=== PATIENT | male | born 1975 | race Caucasian/White ===

== ENCOUNTER 2025-01-20 22:24 | Emergency (ER) | payer BC, SELFPAY ==
[2025-01-20 22:28] VITALS: BP 130/80
[2025-01-20 22:53] LABS: Urine Albumin 2+ (Neg - Trace); Urine Bilirubin Negative (Negative); Urine Character Slightly Cloudy (Clear); Urine Color Yellow; Urine Glucose Negative (Negative); Urine Ketone Negative (Negative); Urine Leukocyte 3+ (Negative); Urine Nitrite Negative (Negative); Urine Occult Blood 4+ (Negative); Urine Urobilinogen Negative (Neg - 1+)
[2025-01-20 22:55] LABS: % Basophils 0.7 % (0-2); % Eosinophils 1.9 % (0-6); % Immature Granulocytes 0.3 % (0-0.5); % Lymphocytes 16.5 % (20.5-51.1); % Monocytes 8.6 % (1.7-9.3); Absolute Basophils 0.1 10^3/uL (0-0.2); Absolute Eosinophils 0.2 10^3/uL (0-0.7); Absolute Lymphocytes 1.9 10^3/uL (1.2-3.4); Absolute Neutrophils 8.3 10^3/uL (1.4-6.5); Hematocrit 39.6 % (39.0-52.0); Hemoglobin 13.9 g/dL (13.0-18.0); Mean Corp Hgb Conc. 35.1 g/dL (33.0-37.0); Mean Corpuscular Hgb 31.7 pg (27.0-31.0); Mean Corpuscular Volume 90.2 fL (80.0-94.0); Nucleated Red Blood Cells % 0 % (-); Platelet Count 284 10^3/uL (130-400); Red Blood Cell Count 4.39 10^6/uL (4.70-6.10); Red Cell Dist. Width 12.6 % (11.5-14.5); White Blood Cell Count 11.5 10^3/uL (4.8-10.8)
[2025-01-20 23:00] LABS: Urine Squamous Cell 0-2 /LPF (Few)
[2025-01-20 23:01] LABS: Urine Bacteria Moderate (Negative); Urine Red Blood Cell 50-60 /HPF (0-2); Urine White Cell 21-25 /HPF (0-5)
[2025-01-20 23:06] LABS: ALT (SGPT) < 10 U/L (0-50); AST (SGOT) 19 U/L (17-59); Albumin 4.5 g/dl (3.5-5.0); Alkaline Phosphatase 59 U/L (38-126); Blood Urea Nitrogen 13 mg/dl (9-20); Calcium 9.5 mg/dl (8.4-10.2); Carbon Dioxide 27 mmol/L (22-30); Chloride 105 mmol/L (98-107); Glucose 123 mg/dl (70-99); Potassium 4.2 mmol/L (3.5-5.1); Sodium 139 mmol/L (135-145); Total Bilirubin 0.8 mg/dl (0.2-1.3); Total Protein 7.1 g/dl (6.3-8.2); eGFR > 60.00
[2025-01-20 23:27] VITALS: BP 118/86
[2025-01-20 23:28] VITALS: BMI 27.3
[2025-01-21] VITALS: BP 132/80
--- NOTE | 2025-01-21 00:16 | ED.GENMED ---
History of Present Illness
General
Chief Complaint: Fever
Source: patient
Exam Limitations: none
Time Seen by Provider: 01/20/25 23:21
Nursing documentation reviewed up to this point in time: agreed with
History of Present Illness
History of Present Illness:
Patient is a 49-year-old male who presents to the emergency department with concerns of dysuria and fever. Patient states he has had intermittent fevers up to 101.5F over the past 2 days. He reports night sweats and chills along with full body
aches. He reports very mild nausea although no vomiting. Patient denies any abdominal pain, flank pain, or diarrhea. Patient denies any cough.
He did notice some mild dysuria over the past day and then this evening passed a few small blood clots prompting visit to the emergency department. He also notes that he passed some 'tissue'.
Patient has no history of kidney stones. No known sick contacts.
Past History
Past History
ED Past Medical History: Other (Cervical vertigo, migraines)
ED Past Surgical History: Orthopedic (ACL reconstruction)
Social History
Tobacco: Non-smoker
Alcohol: None
Drug: None
Review of Systems
Review of Systems
Allergies reviewed?: Yes
All Other Systems: ROS reviewed and negative except as documented in HPI and ROS
Phy Exam
Physical Exam
Physical Exam:
Vitals: Vital signs stable by my assessment. Afebrile
General: Patient is well appearing, no acute distress. Nontoxic appearing
Skin: Warm and dry, no rashes or lesions
Head: Normocephalic, atraumatic
Eyes: Sclera nonicteric.
Throat: Protecting airway
Neck: Normal ROM, no cervical spine tenderness, no meningismus
Cardiac: Regular rate and rhythm, no murmurs.
Pulm: Normal respiratory effort, no wheezes, rales, rhonchi heard on exam
.
Abdomen: Abdomen soft and nontender. No CVA tenderness.
Extremities: No evidence of cyanosis or edema. Palpable DP pulses bilaterally
Neuro: AAOx3. Grossly intact.
Psychiatric: Normal affect.
Course
Orders/Labs/Results
Orders:
Orders
01/20/25 22:33
Urinalysis Urgent
Date Specimen was Collected: 01/20/25
Time Specimen was Collected: 22:34
Urine Microscopic Urgent
Date Specimen was Collected: 01/20/25
Time Specimen was Collected: 22:34
01/20/25 22:42
Complete Blood Count/With Diff Urgent
Comprehensive Metabolic Panel Urgent
Creatine Phosphokinase Urgent
Comment: ADDED
Influenza A+B Rapid Molecular Urgent
FARHAD Source: Nasal Swab
Specimen Description:
Date Specimen was Collected: 01/20/25
Time Specimen was Collected: 22:34
01/20/25 23:59
Bladder Scan- Treatment ONCE
COVID-19 Antigen Urgent
Source: Nasal Swab
0.9% Sodium Chloride 1000 ml [Nss] 1,000 ml IV BOLUS
01/21/25
CT Abd/pelvis Wo Iv Cont Urgent
Reason For Exam: dysuria/hematuria,fever
01/21/25 00:50
Lactic Acid Q4H
Comment: CANCEL 2nd LACTIC ACID IF 1st LACTIC ACID IS LESS THAN 2
Blood Culture Q30M
FARHAD Source: Blood/Venous
Specimen Description:
Blood Culture Q30M
FARHAD Source: Blood/Venous
Specimen Description:
01/21/25 01:22
Add On- LAB Urgent
Tests Added?: CK
01/21/25 01:59
CefTRIAXone [Rocephin] 1,000 mg IV NOW STA
01/21/25 02:03
Sterile Water [Sterile Water For Injection] 10 ml .ROUTE .K-MED ONE
Abnormal Lab Results
01/20/25 01/20/25 01/21/25
22:33 22:42 00:50
WBC 11.5 H 10^3/uL
(4.8-10.8)
RBC 4.39 L 10^6/uL
(4.70-6.10)
MCH 31.7 H pg
(27.0-31.0)
Absolute Neuts (auto) 8.3 H 10^3/uL
(1.4-6.5)
Absolute Monos (auto) 1.0 H 10^3/uL
(0.1-0.6)
Lymphocytes % 16.5 L %
(20.5-51.1)
Glucose 123 H mg/dl
(70-99)
Lactic Acid 0.6 L mmol/L
(0.7-2.0)
Urine Occult Blood 4+ A
(Negative)
Ur Leukocyte Esterase 3+ A
(Negative)
Urine RBC 50-60 A /HPF
(0-2)
Urine WBC 21-25 A /HPF
(0-5)
Urine Bacteria Moderate A
(Negative)
Urine Albumin 2+ A
(Neg - Trace)
01/20/25 22:42
01/20/25 22:42
Vital Signs
Initial and Last Documented VS:
Initial Vital Signs
Temp Pulse Resp BP Pulse Ox
98 F 100 20 130/80 97
01/20/25 22:28 01/20/25 22:28 01/20/25 22:28 01/20/25 22:28 01/20/25 22:28
Last Documented Vital Signs
Temp Pulse Resp BP Pulse Ox
98.3 F 81 19 128/70 96
01/20/25 23:31 01/21/25 02:15 01/21/25 02:15 01/21/25 02:00 01/21/25 02:15
MDM/Problems Addressed
Differential Diagnosis Includes:
Not limited to: Viral illness, cystitis, pyelonephritis, ureterolithiasis, urosepsis, etc.
MDM/Problems Addressed:
49-year-old male presenting with two days of intermittent fever, now with dysuria and hematuria. No abdominal pain, vomiting, diarrhea. Vitals stable. He is afebrile on arrival although did take Motrin prior to coming to ED. Physical exam as above.
Basic labs were sent in triage significant for a mild leukocytosis. Chemistry unremarkable. Urine appears infected with 3+ leukocyte esterace, many RBCs and WBCs, along with moderate bacteria.
Will obtain dry CT to rule out obstructing stone. Given history of fevers at home � will check lactic acid and blood cultures. Will check viral swabs
Update: Viral swabbs negative. CT scan shows findings consistent w/ cystitis with possibility ascending UTI. No evidence of obstructing stone. Lactic negative. Overall impression is likely acute cystitis, possibly developing asceniding
UTO/pylenoephritis. Patient has been afebrile and very well appearing in emergency department. He does not meet sepsis criteria. Offered admission for IV antibiotics given complicated UTI/pyelonephritis. Patient prefers to trial outpatient
management. 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 Patient given dose of IV rocephin in ED and discharged. Very strict return precautions discussed.
Discussed that we will call him if his urine culture not susceptible to current anabiotic or if blood cultures are positive as this would require IV antibiotics. Advise follow with urology � contact information provided. Patient didcharged i stable
condition.
Chronic conditions affecting care:
N/A
Acute Exacerbation and/or Progression of Chronic Illness:
N/A
*Radiology
Radiology exam reviewed: radiology read reviewed
*Pulse Oximetry
Patient hypoxic: no
*EKG
Interpreted by ED Provider?: NA
*Tile Sprayer Interpretation
Rate: Tile Sprayer- N/A
*Critical Care Note
Total Time (30-74mins, 75-104mins- exclusive of procedures): Not Applicable
ED Attending Note
-
Portions of this chart may have been created with voice recognition software.� Occasional wrong word or��sound alike� substitutions may have occurred due to the inherent limitations of voice recognition software.
Discharge Plan
Departure
Patient Disposition: Home (Routine Discharge)
Date of Disposition: 01/21/25
Time of Disposition: 02:15
Patient with high blood pressure during this ER visit?: No
Condition: Good
Covid-19: Negative COVID-19
Discharge Problem:
Acute UTI
Instructions: Fever, Adult (DC), Urinary tract infection in adults - ED discharge instructions
Prescriptions:
New
cefpodoxime 200 mg tablet
200 mg PO BID 10 Days Qty: 20 0RF
No Action
propranolol 10 mg Tablet
10 mg PO BID
pravastatin 10 mg Tablet
10 mg PO HS
omeprazole 20 mg Capsule,Delayed Release(Dr/Ec)
20 mg PO DAILY
Referrals:
Juan Pablo Gavin MD [Active] - Call in 1-3 days for appt
Jori Rouse MD [Family Provider] -
Activity Restrictions/Additional Instructions:
RETURN TO THE EMERGENCY DEPARTMENT ANY FEVERS, CHILLS, SEVERE BACK PAIN, NAUSEA/VOMITING, DIFFICULTIES URINATING, SIGNIFICANT FATIGUE/WEAKNESS, OR ANY OTHER CONCERNS
- As discussed�your urine appeared infected in the emergency department. Your CT scan did show findings consistent with a cystitis/possible ascending UTI.
- You are given a dose of IV Rocephin in the emergency department. A prescription for oral antibiotics has been sent to your pharmacy. You should stop taking your omeprazole while taking his antibiotic.
- It is important to stay well-hydrated. Continue to take Tylenol and/or Motrin as needed for fever.
- We will contact you if your urine culture is positive and resistant to your current antibiotic regimen. We will contact you if your blood culture is positive as you will need to come back to the emergency department for IV antibiotics.
- Follow-up with PCP for further evaluation/management and to ensure that symptoms are improving. Contact information for urology has been provided for you above.
Monitor your symptoms closely and return to the emergency department with any acute worsening/new symptoms or any other concerns
Interventions
Interventions:
*Risk Screen - Suicide Last Done: 01/20/25 22:28
*General Assessment Last Done: 01/20/25 23:29
*Neglect/Abuse Screening Last Done: 01/20/25 22:28
*ED- Fall Risk Assessment Last Done: 01/20/25 23:29
*ED COVID-19 Vaccine History Last Done: 01/20/25 23:29
*Nursing Disposition Last Done: 01/21/25 02:30
ED- Neurological Assessment Last Done: 01/20/25 23:33
ED-Skin Assessment Last Done: 01/20/25 23:33
Discharge Date and Time
Discharge Date/Time: 01/21/25 02:32
Print Language: INDONESIAN
[2025-01-21] MEDS: NSS 1000 IV (00:51)
[2025-01-21 01:00] VITALS: BP 121/76
[2025-01-21 01:45] LABS: COVID-19 Antigen Negative (Negative)
[2025-01-21 01:55] LABS: Lactic Acid 0.6 mmol/L (0.7-2.0)
[2025-01-21 02:00] VITALS: BP 128/70
[2025-01-21 02:02] LABS: Creatine Phosphokinase 68 U/L (55-170)
[2025-01-21] MEDS: ROCEPHIN 1000 MG IV (02:09)
== END 2025-01-21 02:32 | disposition home or self-care (01) ==
LOC: EMR 22:24
PROVIDERS: Physician Assistant; EMERGENCY PHYSICIAN Student in an Organized Health Care Education/Training Program; FAMILY PHYSICIAN Internal Medicine
DX: N39.0 Urinary tract infection, site not specified (principal)
CPT/HCPCS: 99284; 96374; 96361; 74176; 80053; 81003; 81015; 82550; 83605; 85025; 87040; 87502; 87811

== ENCOUNTER 2025-07-02 06:16 | Day surgery (SDC) | payer BC, SELFPAY ==
[2025-06-27 09:59] LABS: Hematocrit 42.5 % (39.0-52.0); Hemoglobin 14.5 g/dL (13.0-18.0); Mean Corp Hgb Conc. 34.1 g/dL (33.0-37.0); Mean Corpuscular Volume 92.0 fL (80.0-94.0); Nucleated Red Blood Cells % 0 % (-); Platelet Count 292 10^3/uL (130-400); Red Cell Dist. Width 12.7 % (11.5-14.5)
[2025-06-27 10:31] LABS: Blood Urea Nitrogen 10 mg/dl (9-20); Calcium 9.8 mg/dl (8.4-10.2); Carbon Dioxide 26 mmol/L (22-30); Chloride 104 mmol/L (98-107); Glucose 108 mg/dl (70-99); Potassium 4.6 mmol/L (3.5-5.1); Sodium 139 mmol/L (135-145); eGFR > 60.00
[2025-07-02 06:54] VITALS: BMI 25.8
[2025-07-02 06:55] VITALS: BP 123/80
[2025-07-02] MEDS: NORMOSOL-R/PLASMALYTE-A 1000 IV (07:25)
[2025-07-02 08:02] VITALS: BP 104/68
[2025-07-02 08:15] VITALS: BP 102/60
[2025-07-02 08:30] VITALS: BP 109/73
[2025-07-02 08:45] VITALS: BP 101/67
== END 2025-07-02 08:45 | disposition home or self-care (01) ==
LOC: SDS 06:16
PROVIDERS: ATTENDING PHYSICIAN Specialist; FAMILY PHYSICIAN Internal Medicine
DX: R31.0 Gross hematuria (principal); Z87.438 Personal history of other diseases of male genital organs
CPT/HCPCS: 52000; C9738; 36415; 80048; 85025; 87086; 93005